=== PATIENT | female | born 1985 | race Caucasian/White ===

== ENCOUNTER 2016-10-22 20:13 | Emergency (ER) | payer OTHER ==
--- NOTE | 2016-10-22 20:32 | EDPHY ---
H & P Time Seen by Provider: 10/22/16 20:53 HPI/ROS: This is a 31-year-old female presenting to the emergency department with naty. Patient states just came from [place] last night visiting, went on a hike today [place] stayed up there for a while descended during that time started having a headache nausea vomiting fatigue. Patient also reported limited fluid intake today. Patient states she just feels weak, denies any dizziness or feeling faint. LMP 10/20/2016 denies any injury any other complaints REVIEW OF SYSTEMS: Constitutional: Eyes: ENT: Respiratory: Cardiac: Gastrointestinal: Genitourinary: Musculoskeletal: Skin: Neurological: Psych: Physical Exam: CONSTITUTIONAL: patient appeared well nourished, non-ill appearing and normally developed. No acute distress. Vital signs as documented. HEENT: Normocephalic atraumatic PERRLA. NECK: Supple, FROM without pain RESP: Non-labored resp effort, airway patent, CTAB CARDIAC: RRR w/o murmur, albino. Normal S1/S2 GI: Abd soft NTTP, no mass NEURO: AAOx3, no neuro deficits EXTREMITIES: FROM without pain or difficulty. Positive cms intact SKIN: Warm and dry, no rash no diaphoresis no pallor PSYCH: Normal affect, calm, no distress, acting appropriately Constitutional: Initial Vital Signs Temperature (C) 36.8 C 10/22/16 20:33 Heart Rate 57 L 10/22/16 20:33 Respiratory Rate 14 10/22/16 20:33 Blood Pressure 117/86 H 10/22/16 20:33 O2 Sat (%) 98 10/22/16 20:33 O2 Delivery Mode Room Air Allergies/Adverse Reactions: hydrocodone Allergy (Verified 10/22/16 20:33) oxycodone Allergy (Verified 10/22/16 20:33) Home Medications: Medication Instructions Recorded Flonase Nasal [place] 10/22/16 Zoloft 50mg (*) 10/22/16 Medical Decision Making ED Course/Re-evaluation: Discussed plan of care: IV fluids for dehydration, CBC, Chem 7 and test 2200: Re-evaluation, patient states feeling better headache has resolved no nausea no vomiting does report still feeling tired. 2215: Discharge home---> stable, discussed discharge instructions with patient Differential Diagnosis: Differential diagnosis considered but not limited to altitude sickness, migraine and dehydration - Data Points Laboratory Results: Laboratory Results 10/22/16 20:45 10/22/16 20:45 10/22/16 10/22/16 10/22/16 20:45 20:45 20:45 WBC 9.87 10^3/uL H 10^3/uL (3.80-9.50) RBC 4.14 10^6/uL L 10^6/uL (4.18-5.33) Hgb 11.9 g/dL L g/dL (12.6-16.3) Hct 35.7 % L % (38.0-47.0) MCV 86.2 fL fL (81.5-99.8) MCH 28.7 pg pg (27.9-34.1) MCHC 33.3 g/dL g/dL (32.4-36.7) RDW 12.5 % % (11.5-15.2) Plt Count 323 10^3/uL 10^3/uL (150-400) MPV 11.3 fL fL (8.7-11.7) Neut % (Auto) 70.6 % % (39.3-74.2) Lymph % (Auto) 22.4 % % (15.0-45.0) [place] % (Auto) 6.1 % % (4.5-13.0) Eos % (Auto) 0.3 % L % (0.6-7.6) Baso % (Auto) 0.3 % % (0.3-1.7) Nucleat RBC Rel Count 0.0 % % (0.0-0.2) Absolute Neuts (auto) 6.97 10^3/uL H 10^3/uL (1.70-6.50) Absolute Lymphs (auto) 2.21 10^3/uL 10^3/uL (1.00-3.00) Absolute Monos (auto) 0.60 10^3/uL 10^3/uL (0.30-0.80) Absolute Eos (auto) 0.03 10^3/uL 10^3/uL (0.03-0.40) Absolute Basos (auto) 0.03 10^3/uL 10^3/uL (0.02-0.10) Absolute Nucleated RBC 0.00 10^3/uL 10^3/uL (0-0.01) Immature Gran % 0.3 % % (0.0-1.1) Immature Gran # 0.03 10^3/uL 10^3/uL (0.00-0.10) Sodium 139 mEq/L mEq/L (134-144) Potassium 4.1 mEq/L mEq/L (3.5-5.2) Chloride 103 mEq/L mEq/L (97-110) Carbon Dioxide 20 mEq/l L mEq/l (22-31) Anion Gap 16 mEq/L mEq/L (8-16) BUN 13 mg/dL mg/dL (7-23) Creatinine 0.7 mg/dL mg/dL (0.6-1.0) Estimated GFR > 60 Glucose 85 mg/dL mg/dL (70-100) Calcium 9.7 mg/dL mg/dL (8.5-10.4) Beta HCG, Qual NEGATIVE Medications Given: Discontinued Medications Sodium Chloride (Ns) 1,000 mls @ 0 mls/hr IV ONCE ONE PRN Reason: Wide Open Stop: 10/22/16 20:53 Last Admin: 10/22/16 20:45 Dose: 1,000 mls Sodium Chloride (Ns) 1,000 mls @ 0 mls/hr IV ONCE ONE PRN Reason: Wide Open Stop: 10/22/16 21:21 Last Admin: 10/22/16 21:29 Dose: 1,000 mls Ketorolac Tromethamine (Toradol) 30 mg IVP EDNOW ONE Stop: 10/22/16 21:21 Last Admin: 10/22/16 21:24 Dose: 30 mg Ondansetron HCl (Zofran) 4 mg IVP EDNOW ONE Stop: 10/22/16 21:21 Last Admin: 10/22/16 21:24 Dose: 4 mg Ondansetron HCl (Zofran Odt 4 Mg Prepack#2) 1 btl TAKEHOME EDNOW ONE Stop: 10/22/16 22:25 Last Admin: 10/22/16 22:32 Dose: 1 btl Departure - Departure Disposition: Home, Routine, Self-Care Clinical Impression: Nausea & vomiting Condition: Good Instructions: Ondansetron (By mouth), Mountain Sickness (ED), Acute Nausea and Vomiting (ED) Additional Instructions: 1. Rest, increase fluid intake 2. I would recommend no high altitude climbing for the next few days 3. Ibuprofen and Tylenol for any headaches 4. I would recommend liquids for the next 6-12 hours, juice, and popsicles, clear broth 5. You're going home with a few pills of Zofran to help with any nausea/vomiting Referrals: KARISSA,UNKNOWN [Other] - As per Instructions
[2016-10-22 20:35] VITALS: RESP 14; TEMP 98.2
[2016-10-22] MEDS ORDERED: NS 1,000 ML IV ONE ×2 (20:52→21:20)
[2016-10-22 21:00] LABS: % IMMATURE GRANULYOCYTES 0.3 % (0.0-1.1); ABSOLUTE IMMATURE GRANULOCYTES 0.03 10^3/uL (0.00-0.10); ADD DIFF? NO; ADD MORPH? NO; ADD SCAN? NO; ATYPICAL LYMPHOCYTE FLAG 10 (0-99); FRAGMENT RBC FLAG 0 (0-99); HEMATOCRIT 35.7 % (38.0-47.0); HEMOGLOBIN 11.9 g/dL (12.6-16.3); LEFT SHIFT FLG 0 (0-99); LIPEMIA HEMOLYSIS FLAG 80 (0-99); MEAN CELL HEMOGLOBIN 28.7 pg (27.9-34.1); MEAN CELL HEMOGLOBIN CONCENTR. 33.3 g/dL (32.4-36.7); MEAN CELL VOLUME 86.2 fL (81.5-99.8); MEAN PLATELET VOLUME 11.3 fL (8.7-11.7); PLATELET CLUMPS FLAG 0 (0-99); PLATELET COUNT 323 10^3/uL (150-400); RED BLOOD CELL COUNT 4.14 10^6/uL (4.18-5.33); RED CELL DISTRIBUTION WIDTH 12.5 % (11.5-15.2)
[2016-10-22 21:02] LABS: ANION GAP 16 mEq/L (8-16); CALCIUM 9.7 mg/dL (8.5-10.4); CARBON DIOXIDE 20 mEq/l (22-31); CHLORIDE 103 mEq/L (97-110); CREATININE 0.7 mg/dL (0.6-1.0); GLOMERULAR FILTRATION RATE > 60; GLUCOSE 85 mg/dL (70-100); POTASSIUM 4.1 mEq/L (3.5-5.2); SODIUM 139 mEq/L (134-144)
[2016-10-22] MEDS ORDERED: ONDANSETRON 4 MG/2 ML VIAL IVP ONE (21:20)
[2016-10-22] MEDS ORDERED: ONDANSETRON 4 MG/2 ML VIAL ONE (21:20)
[2016-10-22] MEDS ORDERED: KETOROLAC 30 MG/1 ML SDV ONE (21:20)
[2016-10-22] MEDS ORDERED: KETOROLAC 30 MG/1 ML SDV IVP ONE (21:20)
[2016-10-22] MEDS ORDERED: ONDANSETRON 4MG PREPACK#2 BTL TAKEHOME ONE (22:24)
[2016-10-22 22:42] VITALS: BP 104/77; PULSE 60; O2SAT 97
[2016-10-24] MEDS ORDERED: PHENYLEPHRINE HCL 100 MCG/ML SYR ONE (13:14)
== END 2016-10-22 22:41 | disposition home or self-care (01) ==
DX: R11.2 Nausea with vomiting, unspecified (principal)
CPT/HCPCS: 96374; J1885; J2370; J2405